=== PATIENT | male | born 1985 | race Caucasian/White ===

== ENCOUNTER 2022-08-12 09:16 | Day surgery (SDC) | payer OTHER ==
[~2022-08-12] VITALS: Ht 195.6 cm; Wt 99.8 kg
[2022-08-12] MEDS ORDERED: fentaNYL citrate 0.05 MG/ML VIAL ONE (13:16)
[2022-08-12] MEDS ORDERED: LIDOCAINE 2% 100 MG/5 ML UJET TP ONE (13:16)
[2022-08-12] MEDS ORDERED: fentaNYL citrate 0.05 MG/ML VIAL IVP ONE (14:00)
== END 2022-08-12 14:12 | disposition home or self-care (01) ==
LOC: MOR 09:16 → MMU 11:01 → MOR 14:12
PROVIDERS: ATTEND Internal Medicine Gastroenterology
DX: K62.89 Other specified diseases of anus and rectum (principal); F20.9 Schizophrenia, unspecified; F31.9 Bipolar disorder, unspecified; K59.00 Constipation, unspecified; Z20.822 Contact with and (suspected) exposure to COVID-19
CPT/HCPCS: 45350; 87426; J3010